=== PATIENT | female | born 1955 | race Caucasian/White ===

== ENCOUNTER → 2017-01-27 | Outpatient (CLI) | payer MEDICAID ==
[~2017-01-27] MED LIST: ALEVE220 MG PO
[2017-01-27 11:06] LABS: LYMPH # 1.8 K/mm3 (0.7-4.5); LYMPH % 17.3 % (10-50.0)
[2017-01-27 11:23] LABS: HEMOGLOBIN 9.5 g/dL (12.2-16.2)
[2017-01-27 13:51] LABS: BUN 10 mg/dL (7-18)
[2017-01-27 13:55] LABS: GFR (ESTIMATED) 85 ML/MIN (59-)
== END ==
LOC: LAB 10:54
PROVIDERS: Internal Medicine Adolescent Medicine
DX: E78.5 Hyperlipidemia, unspecified (principal); I10 Essential (primary) hypertension